=== PATIENT | female | born 1930 | race Caucasian/White ===

== ENCOUNTER 2017-11-16 09:43 | Emergency (ER) | payer MEDICARE ==
[2017-11-16 10:20] LABS: BASO % 0.3 % (0-6); EOS % 2.6 % (0-6); GRAN % 57.4 % (47-80); HEMATOCRIT 36.7 % (35.0-47.0); HEMOGLOBIN 11.8 gm/dl (11.6-16.0); LYMPH % 32.1 % (16-45); MEAN CELL VOLUME 93.9 fl (81-97); MEAN CORPUSCULAR HEMOGLOBIN 30.2 pg (27-33); MEAN CORPUSCULAR HGB CONC 32.2 g/dl (32-36); MEAN PLATELET VOLUME 9.9 fl (7.4-10.4); MONO % 7.6 % (0-9); PLATELET COUNT 288 K/uL (130-400); RED BLOOD COUNT 3.91 M/uL (3.80-5.40); WHITE BLOOD COUNT W/O DIFF 9.9 K/uL (4.2-12.2)
--- NOTE | 2017-11-16 10:21 | Emergency Department Record ---
History of Present Illness - General Chief Complaint: Confusion Stated Complaint: FACIAL DROOP Time Seen by Provider: 11/16/17 09:57 Source: Patient, Family Mode of Arrival: Ambulatory Limitations: No limitations - History of Present Illness Initial Comments: The patient woke up a couple of hours ago and has not felt like herself. She has been slightly more confused at home per family. There may have been a R facial droop at one point but not presently. About 30 minutes prior to presenting to the ER the confusion seemed to worsen. The patient did walk into the ER under her own power with no real difficulty. She seems to be walking more slowly per family. There has been no recent fever, chills, cough, CP, SOB, LEDEZMA, or any trauma. The patient has been battling frequent UTI's over the last few months. MD Complaint: Confusion Onset/Timin -: Hour(s) Consistency: Intermittent Associated Symptoms: Denies other symptoms - [place] Coma Scale Eye Response: (4) Open spontaneously Motor Response: (6) Obeys commands Verbal Response: (5) Oriented Vladislav Total: 15 - Related Data Allergies Allergy/AdvReac Type Severity Reaction Status Date / Time hydrocodone bitartrate Allergy ALTERED Verified 11/16/17 10:00 [From Vicodin] MENTAL STATUS Travel Screening - Travel/Exposure Within Last 30 Days Have you traveled within the last 30 days?: No - Travel/Exposure Within Last Year Have you traveled outside the [place] in the last year?: No - Additonal Travel Details Have you been exposed to anyone with a communicable illness?: No Review of Systems Constitutional: Denies: Chills, Fever Eyes: Denies: Eye discharge ENT: Denies: Congestion Respiratory: Denies: Cough, Dyspnea Cardiovascular: Denies: Arrhythmia Endocrine: Denies: Fatigue Gastrointestinal: Denies: Abdominal pain, Nausea, Vomiting Genitourinary: Denies: Dysuria Musculoskeletal: Denies: Arthralgia, Back pain Skin: Denies: Bruising Past Medical History - SOCIAL HISTORY Smoking Status: Never smoker Alcohol Use: None Drug Use: None - RESPIRATORY Hx Respiratory Disorders: No - CARDIOVASCULAR Hx Cardio Disorders: Yes Hx Hypertension: Yes - NEURO Hx Neuro Disorders: No - GI Hx GI Disorders: No - Hx Genitourinary Disorders: Yes Hx UTI: Yes - ENDOCRINE Hx Endocrine Disorders: No - MUSCULOSKELETAL Hx Musculoskeletal Disorders: Yes Hx Arthritis: Yes - PSYCH Hx Psych Problems: No - HEMATOLOGY/ONCOLOGY Hx Hematology/Oncology Disorders: No Family Medical History Any Significant Family History?: No Hx Cancer: Father, Brother/Sister, Grandparents Hx Diabetes: Grandparents Physical Exam - General General Appearance: Alert, Cooperative, No acute distress - Head Head exam: Atraumatic, Normocephalic, Normal inspection - Eye Eye exam: Normal appearance, PERRL, EOMI - ENT Throat exam: Normal inspection. negative: Tonsillar erythema, Tonsillar exudate - Neck Neck exam: Normal inspection, Full ROM. negative: Tenderness - Respiratory Respiratory exam: Normal lung sounds bilaterally. negative: Respiratory distress - Cardiovascular Cardiovascular Exam: Regular rate, Normal rhythm, Normal heart sounds - GI/Abdominal GI/Abdominal exam: Soft, Normal bowel sounds. negative: Tenderness - Extremities Extremities exam: Normal inspection, Full ROM, Normal capillary refill. negative: Tenderness - Back Back exam: Reports: Normal inspection, Full ROM. Denies: Muscle spasm, Rash noted, Tenderness - Neurological Neurological exam: Alert, Normal gait, Other (There is no facial droop or arm or leg weakness or numbness. Drift exam is neg also. The patient's speech is clear with no dysarthria or aphasia.). negative: Abnormal gait, Motor sensory deficit, Oriented X3 (The patient is oriented to name, place, and year born but not to day or year.) - Psychiatric Psychiatric exam: negative: Agitated, Anxious, Depressed Course Vital Signs 11/16/17 10:02 Temperature 98.3 F Pulse Rate [ 64 Pulse Ox Probe] Respiratory 20 Rate Blood Pressure 128/105 [Left Arm] Pulse Ox 99 - Reevaluation(s) Reevaluation #1: The patient is doing very well at this time. She is conversing normally and has clear speech. Her mild confusion is improving and there is no arm or leg numbness or weakness. She now seems to be back to her normal self and is answering questions more appropriately. She is still confused to the year but that is normal for her per family. 11/16/17 10:41 Reevaluation #2: The patient is now clearly back to normal. We did get the patient up walking and she is ambulating with her cane normally and is very pleasant and cooperative. She is answering all questions appropriately. Due to the hx of confusion earlier which has now resolved I did offer to keep the patient in the hospital overnight. By doing that we would monitor her for any stroke symptoms and follow her mental status. The patient's family who are her medical decision makers state she has a significant hx of sundowning and putting her in the hospital could worsen her chronic confusion. I explained to the family the risks of leaving are that the patient could go home and have a stroke, fall, injure herself and could even . The family understands and accepts the risk of leaving. She is to return to the ER for any return of her symptoms. 11/16/17 11:25 Medical Decision Making - Data Complexity MDM Data: Labs Ordered and/or Reviewed, X-Ray Ordered and/or Reviewed, EKG Ordered and/or Reviewed - Lab Data Result diagrams: 11/16/17 10:10 11/16/17 10:10 - EKG Data -: EKG Interpreted by Me EKG: No Acute Changes, Unchanged From Previous - Radiology Data Radiology results: Report reviewed (CXR: large HH Head CT: Age appropriate atrophy, O/W neg. Possible air fluid level in R max sinus.) Disposition Disposition: Discharge Clinical Impression: Confusion Disposition: Home, Self-Care Condition: (2) Stable Instructions: Altered Mental Status (ED) Additional Instructions: Please continue your regular medicines and use some FLonase and an OTC congestion medicines for the mild fluid in the R maxillary sinus. Please see your family doctor next week and return to the ER for any worsening symptoms. Forms: Patient Portal Access Time of Disposition: 11:30 Quality - Quality Measures Quality Measures: N/A - Blood Pressure Screening View Details: Yes Does Patient Have Any of the Following: Active Dx of HTN Blood Pressure Classification: Hypertensive Reading Systolic Measurement: 174 Diastolic Measurement: 101 Screening for High Blood Pressure: Patient Exclusion, Hx of HTN [G9744]
[2017-11-16 10:38] LABS: URINE APPEARANCE CLEAR; URINE BILIRUBIN NEGATIVE (NEGATIVE); URINE BLOOD NEGATIVE (NEGATIVE); URINE COLOR YELLOW; URINE GLUCOSE (UA) NEGATIVE (NEGATIVE); URINE KETONE NEGATIVE (NEGATIVE); URINE LEUKOCYTE ESTERASE NEGATIVE (NEGATIVE); URINE NITRITE NEGATIVE (NEGATIVE); URINE PROTEIN NEGATIVE (NEGATIVE); URINE UROBILINOGEN 0.2 E.U./dL (0.20 - 1.00)
[2017-11-16 10:40] LABS: BLOOD UREA NITROGEN 17 mg/dL (8-23); CREATININE 0.9 mg/dL (0.5-0.9); EST GLOMERULAR FILTRATION RATE > 60 mL/min
[2017-11-16 10:42] LABS: GLUCOSE,RANDOM 94 mg/dL (74-109)
[2017-11-16 10:43] LABS: PARTIAL THROMBOPLASTIN TIME 29.9 SECONDS (24.5-39.1); PROTHROMBIN TIME (PATIENT) 10.2 SECONDS (9.5-12.1)
[2017-11-16 10:45] LABS: CREATINE PHOSPHOKINASE 65 U/L (26-192)
[2017-11-16 10:48] LABS: CKMB < 1.0 ng/mL (<3.77)
[2017-11-16 10:55] LABS: THYROID STIMULATING HORMONE 3.74 uIU/mL (0.270-4.20)
--- NOTE | 2017-11-19 22:26 | RADIOLOGY REPORT ---
EXAM: CHEST 1 VIEW HISTORY: WEAKNESS AND CONFUSION. TECHNIQUE: AP upright portable. COMPARISON: Two-view chest 09/22/17. FINDINGS: Heart size is stable, within normal limits. Large hiatal hernia again evident. No acute infiltrate is seen and no pleural effusion or pneumothorax evident. Diffuse osteopenia consistent with osteoporosis. IMPRESSION: 1. LARGE HIATAL HERNIA. 2. NO ACUTE INFILTRATE IDENTIFIED. JOB NUMBER: [id number] MTDD
--- NOTE | 2017-11-19 22:31 | CT SCAN REPORT ---
EXAM: CT SCAN HEAD WO CONTRAST HISTORY: CONFUSION, RIGHT-SIDED WEAKNESS. TECHNIQUE: Axial CT scan of the head performed without IV contrast. COMPARISON: None. FINDINGS: No definite acute intracranial hemorrhage identified. No focal mass effect or midline shift evident. Moderate generalized atrophy with chronic- appearing deep white matter changes, nonspecific but likely representing some chronic small vessel deep white matter ischemic disease. No definite acute infarct or intracranial mass lesion is seen. Small air fluid level right maxillary sinus may represent some mild sinusitis. Mai bullosa formation both middle turbinates incidentally noted. IMPRESSION: 1. NO DEFINITE ACUTE INTRACRANIAL HEMORRHAGE OR FOCAL MASS EFFECT EVIDENT. 2. GENERALIZED ATROPHY WITH CHRONIC-APPEARING DEEP WHITE MATTER CHANGES. 3. SMALL AIR FLUID LEVEL RIGHT MAXILLARY SINUS. JOB NUMBER: [id number] MTDD
== END 2017-11-16 11:47 | disposition home or self-care (01) ==
LOC: ER 09:43
DX: R41.0 Disorientation, unspecified (principal); R29.810 Facial weakness; I10 Essential (primary) hypertension
CPT/HCPCS: 70450; 71045; 80048; 81003; 82550; 82553; 84443; 84484; 85025; 85610; 85730; 93005; 93010; 99284

== ENCOUNTER 2018-01-13 11:47 | Emergency (ER) | payer MEDICARE ==
--- NOTE | 2018-01-13 13:09 | Emergency Department Record ---
History of Present Illness - General Chief Complaint: Fall Injury Stated Complaint: FALL/ HEAD AND BACK INJURY Time Seen by Provider: 01/13/18 12:26 Mode of Arrival: Wheelchair - History of Present Illness Initial Comments: fall an complaining of right rib pain and low back pain. 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 Place Fall Occurred: Home Loss of Consciousness: None Prolonged Down Time?: No Symptoms Prior to Fall: None Location: Head, Back Severity: Moderate Severity scale (1-10): 5 Quality: Aching Associated Symptoms: Denies - Related Data Home Medications Medication Instructions Recorded Confirmed Last Taken Cefaclor 250 mg PO DAILY 01/13/18 01/13/18 Unknown Allergies Allergy/AdvReac Type Severity Reaction Status Date / Time hydrocodone bitartrate Allergy ALTERED Unverified 12/21/17 13:54 [From Vicodin] MENTAL STATUS Travel Screening - Travel/Exposure Within Last 30 Days Have you traveled within the last 30 days?: No Review of Systems Reviewed: No additional complaints except as noted below Constitutional: Reports: As per HPI. Denies: Chills, Fever, Malaise, Night sweats, Weakness, Weight change Eyes: Reports: As per HPI. Denies: Eye discharge, Eye pain, Photophobia, Vision change ENT: Reports: As per HPI. Denies: Congestion, Dental pain, Ear pain, Epistaxis , Hearing loss, Throat pain Respiratory: Reports: As per HPI. Denies: Cough, Dyspnea, Hemoptysis, Stridor, Wheezes Cardiovascular: Reports: As per HPI. Denies: Arrhythmia, Chest pain, Dyspnea on exertion, Edema, Murmurs, Orthopnea, Palpitations, Paroxysmal nocturnal dyspnea, Rheumatic Fever, Syncope Endocrine: Reports: As per HPI. Denies: Fatigue, Heat or cold intolerance, Polydipsia, Polyuria Gastrointestinal: Reports: As per HPI. Denies: Abdominal pain, Constipation, Diarrhea, Hematemesis, Hematochezia, Melena, Nausea, Vomiting Genitourinary: Reports: As per HPI. Denies: Abnormal menses, Discharge, Dyspareunia, Dysuria, Frequency, Hematuria, Incontinence, Retention, Urgency Musculoskeletal: Reports: As per HPI, Back pain. Denies: Arthralgia, Gout, Joint swelling, Myalgia, Neck pain Skin: Reports: As per HPI. Denies: Bruising, Change in color, Change in hair/ nails, Lesions, Pruritus, Rash Neurological: Reports: As per HPI. Denies: Abnormal gait, Confusion, Headache, Numbness, Paresthesias, Seizure, Tingling, Tremors, Vertigo, Weakness Psychiatric: Reports: As per HPI. Denies: Anxiety, Auditory hallucinations, Depression, Homicidal thoughts, Suicidal thoughts, Visual hallucinations Hematological/Lymphatic: Reports: As per HPI. Denies: Anemia, Blood Clots, Easy bleeding, Easy bruising, Swollen glands Past Medical History - SOCIAL HISTORY Smoking Status: Never smoker - RESPIRATORY Hx Respiratory Disorders: No - CARDIOVASCULAR Hx Cardio Disorders: Yes Hx Hypertension: Yes - NEURO Hx Neuro Disorders: No - GI Hx GI Disorders: No - Hx Genitourinary Disorders: Yes Hx UTI: Yes - ENDOCRINE Hx Endocrine Disorders: No - MUSCULOSKELETAL Hx Musculoskeletal Disorders: Yes Hx Arthritis: Yes - PSYCH Hx Psych Problems: No - HEMATOLOGY/ONCOLOGY Hx Hematology/Oncology Disorders: No Family Medical History Any Significant Family History?: Yes Hx Cancer: Father, Brother/Sister, Grandparents Hx Diabetes: Grandparents Physical Exam - General General Appearance: Alert, Oriented x3, Cooperative, No acute distress - Head Head exam: Normal inspection - Eye Eye exam: Normal appearance, PERRL Pupils: Normal accommodation - ENT ENT exam: Normal exam, Mucous membranes moist, Normal external ear exam, Normal orophraynx, TM's normal bilaterally Ear exam: Normal external inspection. negative: External canal tenderness Nasal Exam: Normal inspection. negative: Discharge, Sinus tenderness Mouth exam: Normal external inspection, Tongue normal Teeth exam: Normal inspection. negative: Dental caries Throat exam: Normal inspection. negative: Tonsillar erythema, Tonsillar exudate - Neck Neck exam: Normal inspection, Full ROM. negative: Tenderness - Respiratory Respiratory exam: Normal lung sounds bilaterally. negative: Respiratory distress - Cardiovascular Cardiovascular Exam: Regular rate, Normal rhythm, Normal heart sounds, Other ( right rib cage bruise lateral) - GI/Abdominal GI/Abdominal exam: Soft, Normal bowel sounds. negative: Tenderness - Rectal Rectal exam: Deferred - exam: Deferred - Extremities Extremities exam: Normal inspection, Full ROM, Normal capillary refill. negative: Tenderness - Back Back exam: Reports: Normal inspection, Full ROM. Denies: Muscle spasm, Rash noted, Tenderness - Neurological Neurological exam: Alert, Normal gait, Oriented X3, Reflexes normal - Psychiatric Psychiatric exam: Normal affect, Normal mood - Skin Skin exam: Dry, Intact, Normal color, Warm Course Vital Signs 01/13/18 11:49 Temperature 97.5 F L Pulse Rate 79 Respiratory 16 Rate Blood Pressure 157/108 Pulse Ox 97 Disposition Clinical Impression: Contusion of rib on right side Qualifiers: Encounter type: initial encounter Qualified Code(s): S20.211A - Contusion of right front wall of thorax, initial encounter Disposition: Home, Self-Care Condition: (1) Good Instructions: Fall Prevention for Older Adults (ED), Contusion in Adults (ED) Additional Instructions: tylenol for pain two regular every 6 hours follow up with family in 3 days Forms: Patient Portal Access Time of Disposition: 13:26 Quality - Quality Measures Quality Measures: N/A - Blood Pressure Screening Does Patient Have Any of the Following: No, Active Dx of HTN Blood Pressure Classification: Hypertensive Reading Systolic Measurement: 157 Diastolic Measurement: 108 Screening for High Blood Pressure: Patient Exclusion, Hx of HTN [G9744]
--- NOTE | 2018-01-15 08:53 | RADIOLOGY REPORT ---
EXAM: RIGHT RIBS WITH PA CHEST HISTORY: RIGHT LOWER RIB PAIN, STATUS POST FALL. TECHNIQUE: An AP upright view of the chest and three views of the right ribs were obtained. Comparison: Previous chest x-ray dated 11/16/17. FINDINGS: The heart is normal in size. A moderate to large hiatal hernia is present and is unchanged. The mediastinum and pulmonary vasculature are normal. The lungs are clear. There is no pneumothorax or effusion. The bones are diffusely osteopenic. There is subtle cortical irregularity involving the anterior aspect of the right seventh rib which is suspicious for a nondisplaced fracture. There is an old healed fracture involving the lateral aspect of the right fourth rib. The remaining ribs are unremarkable. IMPRESSION: 1. SUBTLE NONDISPLACED FRACTURE INVOLVING THE ANTERIOR ASPECT OF THE RIGHT SEVENTH RIB. 2. NO ACUTE INTRATHORACIC PATHOLOGY. 3. STABLE HIATAL HERNIA. JOB NUMBER: [id number] MTDD
--- NOTE | 2018-01-15 08:58 | RADIOLOGY REPORT ---
EXAM: LUMBAR SPINE, AP AND LATERAL VIEWS HISTORY: RIGHT LOWER BACK PAIN STATUS POST FALL. TECHNIQUE: AP, lateral, and lateral spot views of the lumbar spine were obtained. Comparison: Previous sacrum and coccyx study dated 05/23/12. Previous chest x- ray dated 09/22/17. Encounter: Initial. FINDINGS: There are five lumbar vertebral segments. The bones are diffusely osteopenic. There is Grade 1 anterolisthesis of L4 on L5 which appears unchanged from the previous examination and is likely due to severe bilateral facet arthropathy. There is severe disk space narrowing of the L5-S1 level and moderate disk space narrowing of the L4-L5 level. End plate degenerative changes are present throughout the remaining lumbar levels. Facet arthropathy is also present throughout. There is an old fracture of the right superior pubic ramus. This appears unchanged when compared to a previous pelvic x-ray dated 07/13/17. IMPRESSION: 1. NO ACUTE LUMBAR SPINE PATHOLOGY. 2. 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 3. OLD RIGHT SUPERIOR PUBIC RAMUS FRACTURE. [facility]BER: [id number] [facility]
== END 2018-01-13 13:36 | disposition home or self-care (01) ==
LOC: ER 11:47
DX: S22.31XA Fracture of one rib, right side, initial encounter for closed fracture (principal); M54.5 Low back pain; I10 Essential (primary) hypertension; W19.XXXA Unspecified fall, initial encounter; Y92.002 Bathroom of unspecified non-institutional (private) residence as the place of occurrence of the external cause
CPT/HCPCS: 72100; 99283

== ENCOUNTER 2018-07-30 20:47 | Emergency (ER) | payer MEDICARE ==
--- NOTE | 2018-07-30 21:09 | Emergency Department Record ---
History of Present Illness - General Chief Complaint: Fall Injury Stated Complaint: FALL Time Seen by Provider: 07/30/18 20:54 Source: Patient Mode of Arrival: EMS Limitations: No limitations - History of Present Illness Initial Comments: The patient is here due to tripping and falling at her LTC facility and injuring her R knee. She denies any other injuries. The patient has not been able to walk since falling. The patient denies hitting her head or any other injury. There has been no hip pain, CP, SOB, neck pain or LEDEZMA. 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: No Place Fall Occurred: [facility] Loss of Consciousness: None Prolonged Down Time?: No Symptoms Prior to Fall: None Location: Other Severity: Moderate Severity scale (1-10): 6 Quality: Aching Context: History of frequent falls Associated Symptoms: Other - [place] Coma Scale Eye Response: (4) Open spontaneously Motor Response: (6) Obeys commands Verbal Response: (5) Oriented [place] Total: 15 - Related Data Home Medications Medication Instructions Recorded Confirmed Last Taken Acetaminophen [Tylenol 325Mg] 650 mg PO Q4H 07/30/18 07/30/18 Unknown Guaifenesin/Dextromethorphan 5 ml PO Q4H 07/30/18 07/30/18 Unknown [Robitussin Cough-Chest Dm Liq] Allergies Allergy/AdvReac Type Severity Reaction Status Date / Time hydrocodone bitartrate Allergy ALTERED Unverified 06/21/18 08:55 [From Vicodin] MENTAL STATUS Travel Screening - Travel/Exposure Within Last 30 Days Have you traveled within the last 30 days?: No - Travel Symptoms Symptom Screening: None Review of Systems Constitutional: Denies: Chills, Fever Eyes: Denies: Eye discharge ENT: Denies: Congestion Respiratory: Denies: Cough, Dyspnea Cardiovascular: Denies: Arrhythmia Endocrine: Denies: Fatigue Gastrointestinal: Denies: Nausea Genitourinary: Denies: Dysuria Musculoskeletal: Denies: Arthralgia Skin: Denies: Bruising Past Medical History - SOCIAL HISTORY Smoking Status: Never smoker Alcohol Use: None Drug Use: None - RESPIRATORY Hx Respiratory Disorders: No - CARDIOVASCULAR Hx Cardio Disorders: Yes Hx Hypertension: Yes - NEURO Hx Neuro Disorders: Yes Hx Dementia: Yes ("forgetful") - GI Hx GI Disorders: No - Hx Genitourinary Disorders: Yes Hx UTI: Yes - ENDOCRINE Hx Endocrine Disorders: No - MUSCULOSKELETAL Hx Musculoskeletal Disorders: Yes Hx Arthritis: Yes - PSYCH Hx Psych Problems: No - HEMATOLOGY/ONCOLOGY Hx Hematology/Oncology Disorders: No Family Medical History Any Significant Family History?: Yes Hx Cancer: Father, Brother/Sister, Grandparents Hx Diabetes: Grandparents Physical Exam - General General Appearance: Alert, Cooperative, No acute distress - Head Head exam: Atraumatic, Normocephalic, Normal inspection Head exam detail: negative: Abrasion, Contusion, Mart's sign, General tenderness - Eye Eye exam: Normal appearance, PERRL - Neck Neck exam: Normal inspection, Full ROM. negative: Tenderness (There is no Cspine tenderness and there is normal ROM of the neck with no pain.) - Respiratory Respiratory exam: Normal lung sounds bilaterally. negative: Chest wall tenderness (There is no rib tenderness.), Respiratory distress - Cardiovascular Cardiovascular Exam: Regular rate, Normal rhythm, Normal heart sounds - GI/Abdominal GI/Abdominal exam: Soft, Normal bowel sounds. negative: Rebound, Rigid, Tenderness - Extremities Extremities exam: Joint swelling, Tenderness (There is significant anterior R knee tenderness. ), Other (The R lower extremity is NVI. There is no hip or pelvis tenderness.). negative: Normal inspection, Full ROM - Back Back exam: Denies: Vertebral tenderness - Neurological Neurological exam: Abnormal gait, Alert, Oriented X3 (The patient is oriented to name, place, bday, age and family in the room. She is answering questions appropriately. ). negative: Altered, Motor sensory deficit, Normal gait Course Vital Signs 07/30/18 20:52 Temperature 98 F Pulse Rate [ 97 H Pulse Ox Probe] Respiratory 24 Rate Blood Pressure 162/86 [Right Arm] Pulse Ox 98 - Reevaluation(s) Reevaluation #1: The patient is doing very well at this time and is resting comfortably. She has no pain at this time with the Knee Immobilizer in place. Due to the need for Orthopedic consultation I did discuss transfer with family and they would like to go to [facility]. I then did discuss the case with the ER doctor who talked with Dr. Reed who did accept the patient. The ER doctor would like the patient directly admitted to medicine and bypass the ER. Due to that I did discuss the case with Dr. Cool and he did accept the patient to [facility] and will consult Ortho. 07/30/18 21:59 Medical Decision Making - Data Complexity MDM Data: X-Ray Ordered and/or Reviewed - Radiology Data Radiology results: Report reviewed (R knee: Medial and Lateral tibial plateau fx's with lateral plateu depressed mildly.) Disposition Disposition: Transfer Clinical Impression: Fracture, tibial plateau Qualifiers: Encounter type: initial encounter Fracture type: closed Laterality: right Qualified Code(s): S82.141A - Displaced bicondylar fracture of right tibia, initial encounter for closed fracture Disposition: Acute Care Hospital Transfer Transfer To: [facility] Reason For Transfer: Orthopedics Accepting Physician: Silvina Time Discussed w/Accepting Physician: 22:02 Condition: (2) Stable Forms: Patient Portal Access Time of Disposition: 22:02 Quality - Quality Measures Quality Measures: N/A - Blood Pressure Screening View Details: Yes Does Patient Have Any of the Following: No Blood Pressure Classification: Pre-Hypertensive BP Reading Systolic Measurement: 162 Diastolic Measurement: 86 Screening for High Blood Pressure: < Pre-Hypertensive BP, F/U Documented > [G8950] Pre-Hypertensive Follow-up Interventions: Referral to alternative/primary care provider.
--- NOTE | 2018-08-01 21:09 | RADIOLOGY REPORT ---
EXAM: KNEE, RIGHT 3 VIEWS HISTORY: FALL. TECHNIQUE: Multiple views of the right knee are provided without comparison examinations. FINDINGS: Nondisplaced fracture of the medial tibial plateau is noted. There are also findings suspicious for a nondisplaced, mildly depressed fracture of the lateral tibial plateau. Linear lucency is noted within the region of the tibial spine suspicious for a nondisplaced fracture as well. Significant suprapatellar bursal fluid is noted. Patella appears unremarkable. IMPRESSION: COMMINUTED FRACTURE OF THE MEDIAL AND LATERAL TIBIAL PLATEAU ARE NOTED. JOB NUMBER: [id number] [facility]
== END 2018-07-30 22:30 | disposition short-term general hospital (02) ==
LOC: ER 20:47
DX: S82.141A Displaced bicondylar fracture of right tibia, initial encounter for closed fracture (principal); W01.0XXA Fall on same level from slipping, tripping and stumbling without subsequent striking against object, initial encounter; Z91.81 History of falling; Y92.129 Unspecified place in nursing home as the place of occurrence of the external cause; I10 Essential (primary) hypertension
CPT/HCPCS: 99285